=== PATIENT | female | born 1940 | race Caucasian/White ===

== ENCOUNTER 2017-06-12 13:16 | Emergency (ER) | payer MEDICARE ==
[~2017-06-12] VITALS: Ht 160 cm; Wt 77.1 kg
[~2017-06-12 13:16] MED LIST: ADULT LOW DOSE81 MG; ATENOLOL; ELAVIL; EYE DROPS15 M1; ZOCOR
[2017-06-12] MEDS ORDERED: HYDROCODONE-AP1 EAC6 PO (14:14)
[2017-06-12 14:26] VITALS: BP 169/86
== END 2017-06-12 14:27 | disposition home or self-care (01) ==
LOC: M.ERS 13:16
DX: S63.92XA Sprain of unspecified part of left wrist and hand, initial encounter (principal); I10 Essential (primary) hypertension; E78.00 Pure hypercholesterolemia, unspecified; F41.9 Anxiety disorder, unspecified; Z90.710 Acquired absence of both cervix and uterus; W01.0XXA Fall on same level from slipping, tripping and stumbling without subsequent striking against object, initial encounter; Y93.89 Activity, other specified; Y92.89 Other specified places as the place of occurrence of the external cause; Y99.8 Other external cause status